=== PATIENT | female | born 2000 | race Caucasian/White ===

== ENCOUNTER → 2022-02-11 | Outpatient (CLI) | payer BC | LOC: LAB 15:02 | PROVIDERS: ATTEND Nurse Practitioner Gerontology | DX: Z32.00 Encounter for pregnancy test, result unknown (principal) | CPT/HCPCS: 36415; 84703 ==

== ENCOUNTER 2022-10-17 00:36 | Emergency (ER) | payer BC ==
[~2022-10-17] VITALS: Ht 165 cm; Wt 88.5 kg
[2022-10-17] MEDS ORDERED: FEXO180T84 PO (00:48)
[2022-10-17] MEDS ORDERED: EPIN0.3P18 (00:48)
[2022-10-17] MEDS ORDERED: FAMO-144 PO (00:48)
[2022-10-17] MEDS ORDERED: BUDE10.2 (00:48)
--- NOTE | 2022-10-17 00:56 | ED Abdominal Pain ---
General Chief Complaint: Abdominal/GI Problems Stated Complaint: ABD PAIN 5 WKS PREG Nursing Triage Note: right sided burning/stabbing abdominal pain since 1630 10/16/22 Source of Information: Patient Exam Limitations: No Limitations History of Present Illness Date Seen by Provider: Oct 17, 2022 Time Seen by Provider: 00:57 Initial Comments Patient is a 22-year-old female G2, P0 who presents to the emergency room with a chief complaint of right-sided abdominal pain that she describes as "sharp". Nothing has made it any better or any worse, she has not taken any medications for the pain. She states her examiner rating clerk told her not to take any Tylenol at this stage in her . Her last menstrual cycle was 09-08-2022. She denies any abnormal vaginal discharge or bleeding. No nausea currently. Last normal bowel movement was last night. No fevers or chills. She works as a tech at [employer], she has had mild cough. She complains of other body aches as well. Tested for COVID yesterday and it was negative. No dysuria, urgency or frequency. Has scheduled appointment at the end of October with Dr. AYALA. Tells me that she has a history of "autoimmune disease" that she is unsure what it is. She has chronic "hives". She is on multiple allergy medications Patient clinically appears non toxic, not in severe pain. resting comfortably. Timing/Duration: 1 Day Severity/Quality: Moderate, Sharp Location: RLQ Radiation: Back Activities at Onset: None Associated Symptoms: Back Pain, Nausea/Vomiting, Other (body aches) Allergies and Home Medications Allergies Coded Allergies: cetirizine (Verified Allergy, Unknown, 10/17/22) montelukast (Verified Allergy, Unknown, 10/17/22) Patient Home Medication List Home Medication List Reviewed: Yes Budesonide/Formoterol Fumarate (Symbicort 160-4.5 Mcg Inhaler) 160 Mcg-4.5 Mcg/ Actuation Hfa.aer.ad, (Reported) Entered as Reported by: JANET MOON on 10/17/2247 Last Action: New Order Epinephrine (Epinephrine) 0.3 Mg/0.3 Ml Auto.injct, (Reported) Entered as Reported by: JANET MOON on 10/17/2247 Last Action: New Order Famotidine (Acid Production Control Clerk (FAMOTIDINE)) 10 Mg Tablet, 10 MG PO BID, (Reported) Entered as Reported by: JANET MOON on 10/17/2247 Last Action: New Order Fexofenadine HCl (Sondra Allergy) 180 Mg Tablet, 180 MG PO, (Reported) Entered as Reported by: JANET MOON on 10/17/2247 Last Action: New Order Review of Systems Review of Systems Constitutional: see HPI EENTM: No Symptoms Reported, Throat Pain (mild) Respiratory: Cough Cardiovascular: No Symptoms Reported Gastrointestinal: Abdominal Pain Genitourinary: No Symptoms Reported Musculoskeletal: no symptoms reported Skin: no symptoms reported All Other Systems Reviewed Negative Unless Noted: Yes Past Bzdkial-Vtgbxo-Jgrpvv Hx Patient Social History Tobacco Use?: No Substance use?: No Alcohol Use?: No Pt feels they are or have been: No Immunizations Up To Date First/Initial COVID19 Vaccinat: x2 Past Medical History Surgery/Hospitalization HX: seasonal allergies, gerd, asthma, dental sx Last Menstrual Period: Sep 08, 2022 Physical Exam Vital Signs Vital Signs - First Documented 10/17/22 00:43 Temp 37.0 Pulse 107 Resp 16 B/P (MAP) 129/70 (89) Pulse Ox 97 O2 Delivery Room Air Capillary Refill : Less Than 3 Seconds Height/Weight/BMI Height: '" Weight: lbs. oz. kg; 32.00 BMI Method: General Appearance: WD/WN, no apparent distress HEENT: PERRL/EOMI Neck: full range of motion Respiratory: lungs clear, normal breath sounds, no respiratory distress, no accessory muscle use Cardiovascular: regular rate, rhythm Gastrointestinal: normal bowel sounds, soft, tenderness (mild tenderness RLQ; no rebound or involuntary guarding. normal bowel sounds.) Extremities: normal range of motion, non-tender, normal inspection, no pedal edema, no calf tenderness, normal capillary refill Back: no CVA tenderness Neurologic/Psychiatric: no motor/sensory deficits, alert, normal mood/affect, oriented x 3 Skin: normal color, warm/dry Progress/Results/Core Measures Results/Orders Lab Results Laboratory Tests Test 10/17/22 00:13 10/17/22 00:59 Range/Units Influenza Type A (RT-PCR) Not Detected Not Detecte Influenza Type B (RT-PCR) Not Detected Not Detecte SARS-CoV-2 RNA (RT-PCR) Detected H Not Detecte Urine Color YELLOW Urine Clarity CLEAR Urine pH 8.0 5-9 Urine Specific [place] 1.015 L 1.016-1.022 Urine Protein NEGATIVE NEGATIVE Urine Glucose (UA) NEGATIVE NEGATIVE Urine Ketones NEGATIVE NEGATIVE Urine Nitrite NEGATIVE NEGATIVE Urine Bilirubin NEGATIVE NEGATIVE Urine Urobilinogen 1.0 < = 1.0 MG/DL Urine Leukocyte Esterase NEGATIVE NEGATIVE Urine RBC (Auto) NEGATIVE NEGATIVE Urine RBC NONE /HPF Urine WBC NONE /HPF Urine Crystals NONE /LPF Urine Bacteria NEGATIVE /HPF Urine Casts NONE /LPF Urine Mucus NEGATIVE /LPF Urine Culture Indicated NO My Orders Orders - JESSA YU MD Ua Culture If Indicated (10/17/22 01:05) Urine Bedside (10/17/22 01:05) Covid 19 Inhouse Test (10/17/22 01:09) Influenza A And B By Pcr (10/17/22 01:09) Isolation Central Supply Req (10/17/22 01:09) Vital Signs/I&O 10/17/22 00:43 Temp 37.0 Pulse 107 Resp 16 B/P (MAP) 129/70 (89) Pulse Ox 97 O2 Delivery Room Air Blood Pressure Mean: 89 Progress Progress Note : Time: 01:56 Progress Note Patient seen and evaluated by me, 22-year-old female with body aches, right lower quadrant abdominal pain, generalized malaise and fatigue. Evaluation today includes physical exam, urinalysis, urine test and COVID test. Differential diagnosis includes intra-abdominal pathology such as appendicitis, ovarian torsion, ectopic , flu, COVID, urinary tract infection, Piuelonephritis. She has minimal tenderness in the right lower quadrant without rebound, involuntary guarding. Low clinical suspicion for appendicitis. Her abdominal pain is not severe, low clinical concern for ovarian torsion. She has no vaginal bleeding, clinically looks well, low clinical concern for ectopic. Her urine is clean. COVID test is positive. Suspect her abdominal pain and body aches are secondary to COVID. I have advised her that the clinical picture can change and should she develop worsening pain, vaginal bleeding she needs to come back to the emergency department for reevaluation. She is comfortable with plan of care. Tylenol recommended for body aches and pain. Hydration recommended. Return precautions given. She verbalized understanding. All questions were sought and answered. Departure Impression Primary Impression: COVID-19 Additional Impression: 5 weeks gestation of Disposition: HOME, SELF-CARE Condition: Stable Departure-Patient Inst. Decision time for Depature: 02:01 Referrals: YOSELIN AYALA,LOCAL PHYSICIAN (PCP) Primary Care Physician Patient Instructions: COVID-19 ED Add. Discharge Instructions: Plenty fluids to stay well-hydrated. Try to follow a good diet. You can take wzwi-ypm-eacddve regular strength Tylenol 650 mg every 6 hours as needed for pain. You can take Zofran, 4 mg every 8 hours as needed for nausea. You will need to quarantine until next Tuesday due to COVID. Return to the emergency room if you have any worsening pain especially with vaginal bleeding or spotting, nausea vomiting or any other new, concerning or emergent complaints Scripts Ondansetron (Ondansetron Odt) 4 Mg Tab.rapdis 4 MG SL Q8H PRN for NAUSEA/VOMITING, #10 TAB Prov: JESSA YU MD 10/17/22 Work/School Note: Work Release Form Date Seen in the Emergency Department: Oct 17, 2022 Return to Work: Oct 20, 2022 Copy Copies To 1: YOSELIN AYALA KATHRYN M MD Oct 17, 2022 00:56
[2022-10-17 01:10] LABS: BILIRUBIN,URINE NEGATIVE (NEGATIVE); CLARITY,URINE CLEAR; COLOR,URINE YELLOW; GLUCOSE, URINE (UA) NEGATIVE (NEGATIVE); KETONES,URINE NEGATIVE (NEGATIVE); LEUKOCYTE ESTERASE ,URINE NEGATIVE (NEGATIVE); NITRITE,URINE NEGATIVE (NEGATIVE); PROTEIN,URINE NEGATIVE (NEGATIVE)
[2022-10-17 01:17] LABS: BACTERIA,URINE NEGATIVE /HPF
[2022-10-17] MEDS ORDERED: ONDA4TAB11 SL (02:03)
[2022-10-17 02:05] VITALS: BP 123/79
== END 2022-10-17 02:08 | disposition home or self-care (01) ==
LOC: EDUNIT# 00:36 → ER 00:39
DX: O98.511 Other viral diseases complicating pregnancy, first trimester (principal); U07.1 COVID-19; R10.31 Right lower quadrant pain; R53.81 Other malaise; R53.83 Other fatigue; Z3A.01 Less than 8 weeks gestation of pregnancy
CPT/HCPCS: 81000; 84703; 87636; 99283

== ENCOUNTER 2022-10-20 15:49 | Emergency (ER) | payer BC ==
[~2022-10-20] VITALS: Ht 167.7 cm; Wt 88.4 kg
[~2022-10-20 15:49] MED LIST: BUDE10.2; EPIN0.3P18; FAMO-144 PO; FEXO180T84 PO; ONDA4TAB11 SL
[2022-10-20] MEDS ORDERED: PROCHLORPERAZINE 10 MG/2ML INJ (COMPAZINE) IV ONE (16:15)
[2022-10-20] MEDS ORDERED: diphenhydrAMINE 50 MG/ML INJ (BENADRYL) IVP ONE (16:15)
[2022-10-20] MEDS ORDERED: LACTATED RINGERS 1,000 ML IV SCH (16:15)
[2022-10-20 16:37] LABS: BASOPHILS % (AUTO) 0 % (0-10); EOSINOPHILS # (AUTO) 0.2 10^3/uL (0.0-0.3); EOSINOPHILS % (AUTO) 4 % (0-10); HEMATOCRIT 41 % (35-52); HEMOGLOBIN 13.5 g/dL (11.5-16.0); LYMPHOCYTES # (AUTO) 1.6 10^3/uL (1.0-4.0); LYMPHOCYTES % (AUTO) 32 % (12-44); MEAN CORPUSCULAR HEMOGLOBIN 29 pg (25-34); MEAN CORPUSCULAR HGB CONC 33 g/dL (32-36); MEAN CORPUSCULAR VOLUME 87 fL (80-99); MEAN PLATELET VOLUME 11.3 fL (9.0-12.2); MONOCYTES # (AUTO) 0.4 10^3/uL (0.0-1.0); MONOCYTES % (AUTO) 9 % (0-12); NEUTROPHILS # (AUTO) 2.6 10^3/uL (1.8-7.8); NEUTROPHILS % (AUTO) 54 % (42-75); WHITE BLOOD COUNT 4.8 10^3/uL (4.3-11.0)
[2022-10-20 16:41] LABS: BILIRUBIN,URINE NEGATIVE (NEGATIVE); CLARITY,URINE CLEAR; COLOR,URINE YELLOW; GLUCOSE, URINE (UA) NEGATIVE (NEGATIVE); KETONES,URINE TRACE (NEGATIVE); LEUKOCYTE ESTERASE ,URINE TRACE (NEGATIVE); NITRITE,URINE NEGATIVE (NEGATIVE); PROTEIN,URINE TRACE (NEGATIVE)
[2022-10-20 16:41] LABS: PLATELET COUNT 160 10^3/uL (130-400)
[2022-10-20 16:44] LABS: ALBUMIN 4.4 GM/DL (3.2-4.5); POTASSIUM 4.1 MMOL/L (3.6-5.0)
[2022-10-20 16:47] LABS: TOTAL PROTEIN 7.7 GM/DL (6.4-8.2)
[2022-10-20 16:49] LABS: BILIRUBIN,TOTAL 0.4 MG/DL (0.1-1.0)
[2022-10-20 16:50] LABS: CREATININE SERUM 0.68 MG/DL (0.60-1.30)
[2022-10-20 16:59] LABS: BACTERIA,URINE TRACE /HPF; SQUAMOUS EPITHELIAL CELL,UR >50 /HPF; WBC,URINE RARE /HPF
--- NOTE | 2022-10-20 17:00 | ED General ---
General Chief Complaint: COVID19 Suspect/Confirmed Stated Complaint: COVID + 10/17 - WEAKNESS - VOMITING Nursing Triage Note: PT AMB TO RM 9 WITH CC OF VMOITING, NAUSEA, AND HEADCHE SINCE LAST PM. PT STATES TESTED POSITIVE FOR COVID 10/17. DENIES FEVER. PT REPORTS IS PREG, LMP Aug Source of Information: Patient Exam Limitations: No Limitations History of Present Illness Date Seen by Provider: Oct 20, 2022 Time Seen by Provider: 16:00 Initial Comments Patient is a 22-year-old female who presents to the emergency department for evaluation of nausea/vomiting and headache that began last night. Patient tested positive for COVID on 10/17. She denies any fever. Patient reports she is with an LMP of September 08. She denies any abdominal pain or vaginal bleeding/discharge. She does have ODT Zofran at home but this is not helping her symptoms. She endorses a history of frequent migraines in the past. States the pain is mostly behind her left eye and is consistent with previous migraines. Allergies and Home Medications Allergies Coded Allergies: cetirizine (Verified Allergy, Unknown, 10/17/22) montelukast (Verified Allergy, Unknown, 10/17/22) Patient Home Medication List Home Medication List Reviewed: Yes Budesonide/Formoterol Fumarate (Symbicort 160-4.5 Mcg Inhaler) 160 Mcg-4.5 Mcg/Actuation Hfa.aer.ad, (Reported) Entered as Reported by: JANET MOON on 10/17/2247 Epinephrine (Epinephrine) 0.3 Mg/0.3 Ml Auto.injct, (Reported) Entered as Reported by: JANET MOON on 10/17/2247 Famotidine (Acid Sexual Assault Counsellor (FAMOTIDINE)) 10 Mg Tablet, 10 MG PO BID, (Reported) Entered as Reported by: JANET MOON on 10/17/2247 Fexofenadine HCl (Sondra Allergy) 180 Mg Tablet, 180 MG PO, (Reported) Entered as Reported by: JANET MOON on 10/17/2247 Ondansetron (Ondansetron Odt) 4 Mg Tab.rapdis, 4 MG SL Q8H PRN for NAUSEA/V OMITING Prescribed by: JESSA YU on 10/17/22202 Prochlorperazine Maleate (Prochlorperazine Maleate) 10 Mg Tablet, 10 MG PO Q8H PRN for NAUSEA/VOMITING Prescribed by: Davonte Granados on 10/20/22 1722 Review of Systems Review of Systems Constitutional: no symptoms reported EENTM: no symptoms reported Respiratory: no symptoms reported Cardiovascular: no symptoms reported Gastrointestinal: nausea, vomiting Genitourinary: no symptoms reported Musculoskeletal: no symptoms reported Skin: no symptoms reported Psychiatric/Neurological: See HPI, Headache Hematologic/Lymphatic: No Symptoms Reported Immunological/Allergic: no symptoms reported Past Otzgcfm-Lshnyu-Hucaij Hx Patient Social History Tobacco Use?: No Substance use?: No Alcohol Use?: No Pt feels they are or have been: No Immunizations Up To Date First/Initial COVID19 Vaccinat: x2 Second COVID19 Vaccination Po: x2 Third COVID19 Vaccination Date: x2 Past Medical History Surgery/Hospitalization HX: seasonal allergies, gerd, asthma, dental sx Last Menstrual Period: Sep 08, 2022 Physical Exam Vital Signs Vital Signs - First Documented 10/20/22 15:57 Temp 36.1 Pulse 97 Resp 18 B/P (MAP) 123/89 (100) Pulse Ox 99 O2 Delivery Room Air Capillary Refill : Less Than 3 Seconds Height, Weight, BMI Height: '" Weight: lbs. oz. kg; 31.00 BMI Method: General Appearance: No Apparent Distress, WD/WN HEENT: PERRL/EOMI, TMs Normal, Normal ENT Inspection, Pharynx Normal Neck: Full Range of Motion, Normal Inspection, Non Tender, Supple Respiratory: Chest Non Tender, Lungs Clear, Normal Breath Sounds, No Accessory Muscle Use, No Respiratory Distress Cardiovascular: Regular Rate, Rhythm, Normal Peripheral Pulses Gastrointestinal: Non Tender, Soft Extremity: Non Tender, No Calf Tenderness Neurologic/Psychiatric: Alert, Oriented x3, No Motor/Sensory Deficits, Normal Mood/Affect Skin: Normal Color, Warm/Dry Progress/Results/Core Measures Suspected Sepsis SIRS Temperature: Pulse: 97 Respiratory Rate: 18 Laboratory Tests 10/20/22 16:22: White Blood Count 4.8 Blood Pressure 123 /89 Mean: 100 Laboratory Tests 10/20/22 16:22: Creatinine 0.68, Platelet Count 160, Total Bilirubin 0.4 Results/Orders Lab Results Laboratory Tests Test 10/20/22 16:22 10/20/22 16:32 Range/Units White Blood Count 4.8 4.3-11.0 10^3/uL Red Blood Count 4.67 3.80-5.11 10^6/uL Hemoglobin 13.5 11.5-16.0 g/dL Hematocrit 41 35-52 % Mean Corpuscular Volume 87 80-99 fL Mean Corpuscular Hemoglobin 29 25-34 pg Mean Corpuscular Hemoglobin Concent 33 32-36 g/dL Red Cell Distribution Width 13.1 10.0-14.5 % Platelet Count 160 130-400 10^3/uL Mean Platelet Volume 11.3 9.0-12.2 fL Immature Granulocyte % (Auto) 0 % Neutrophils (%) (Auto) 54 42-75 % Lymphocytes (%) (Auto) 32 12-44 % Monocytes (%) (Auto) 9 0-12 % Eosinophils (%) (Auto) 4 0-10 % Basophils (%) (Auto) 0 0-10 % Neutrophils # (Auto) 2.6 1.8-7.8 10^3/uL Lymphocytes # (Auto) 1.6 1.0-4.0 10^3/uL Monocytes # (Auto) 0.4 0.0-1.0 10^3/uL Eosinophils # (Auto) 0.2 0.0-0.3 10^3/uL Basophils # (Auto) 0.0 0.0-0.1 10^3/uL Immature Granulocyte # (Auto) 0.0 0.0-0.1 10^3/uL Percent Immature Platelet Fraction 7.2 0.0-7.6 % Sodium Level 138 135-145 MMOL/L Potassium Level 4.1 3.6-5.0 MMOL/L Chloride Level 108 H 98-107 MMOL/L Carbon Dioxide Level 17 L 21-32 MMOL/L Anion Gap 13 5-14 MMOL/L Blood Urea Nitrogen 8 7-18 MG/DL Creatinine 0.68 0.60-1.30 MG/DL Estimat Glomerular Filtration Rate 128 BUN/Creatinine Ratio 12 Glucose Level 88 70-105 MG/DL Calcium Level 9.0 8.5-10.1 MG/DL Corrected Calcium 8.7 8.5-10.1 MG/DL Total Bilirubin 0.4 0.1-1.0 MG/DL Aspartate Amino Transf (AST/SGOT) 24 5-34 U/L Alanine Aminotransferase (ALT/SGPT) 19 0-55 U/L Alkaline Phosphatase 54 40-136 U/L Total Protein 7.7 6.4-8.2 GM/DL Albumin 4.4 3.2-4.5 GM/DL Urine Color YELLOW Urine Clarity CLEAR Urine pH 8.0 5-9 Urine Specific [place] 1.020 1.016-1.022 Urine Protein TRACE H NEGATIVE Urine Glucose (UA) NEGATIVE NEGATIVE Urine Ketones TRACE H NEGATIVE Urine Nitrite NEGATIVE NEGATIVE Urine Bilirubin NEGATIVE NEGATIVE Urine Urobilinogen 2.0 < = 1.0 MG/DL Urine Leukocyte Esterase TRACE H NEGATIVE Urine RBC (Auto) NEGATIVE NEGATIVE Urine RBC NONE /HPF Urine WBC RARE /HPF Urine Squamous Epithelial Cells >50 H /HPF Urine Crystals NONE /LPF Urine Bacteria TRACE /HPF Urine Casts NONE /LPF Urine Mucus SMALL H /LPF Urine Culture Indicated NO My Orders Orders - DAVONTE GRANADOS APRN Cbc With Automated Diff (10/20/22 16:03) Comprehensive Metabolic Panel (10/20/22 16:03) Iv/Invasive Line Insertion .IV INSERT (10/20/22 16:03) Urinalysis (10/20/22 16:03) Lactated Ringers (Lr 1000 Ml Iv Solution (10/20/22 16:15) Prochlorperazine Injection (Compazine In (10/20/22 16:15) Diphenhydramine Injection (Benadryl Inje (10/20/22 16:15) Medications Given in ED Current Medications Medications Dose Ordered Sig/Nawaf Route Start Time Stop Time Status Last Admin Dose Admin Diphenhydramine HCl 12.5 mg ONCE ONCE IVP 10/20/22 16:15 10/20/22 16:16 DC 10/20/22 16:25 12.5 MG Prochlorperazine Edisylate 10 mg ONCE ONCE IV 10/20/22 16:15 10/20/22 16:16 DC 10/20/22 16:25 10 MG Vital Signs/I&O 10/20/22 10/20/22 15:57 17:27 Temp 36.1 Pulse 97 73 Resp 18 18 B/P (MAP) 123/89 (100) 109/54 Pulse Ox 99 100 O2 Delivery Room Air Room Air Capillary Refill : Less Than 3 Seconds Blood Pressure Mean: 100 Progress Note : Progress Note Patient is nontoxic and well-hydrated on exam. Vital signs are reassuring. Abdominal exam is benign with no rigidity/distention or focal provocation of pain with palpation. Patient was ambulatory to the exam room without issue. Orders placed for CBC, CMP, IV insertion, UA, 1 L bolus of lactated Ringer's, and IV Compazine/Benadryl. CBC is unremarkable. Specifically there is no leukocytosis or anemia. CMP unremarkable for any significant metabolic derangements. Patient states she felt much better after the liter of fluid and the Compazine. Urinalysis reassuring. Will discharge home with recommendations for supportive care and close follow-up with PCP. Return precautions for symptomology discussed. Patient verbalized understanding. Departure Impression Primary Impression: Migraine Qualified Codes: G43.909 - Migraine, unspecified, not intractable, without status migrainosus Additional Impression: Nausea & vomiting Qualified Codes: R11.2 - Nausea with vomiting, unspecified Disposition: 01 HOME, SELF-CARE Condition: Stable Departure-Patient Inst. Decision time for Depature: 17:20 Referrals: NO,LOCAL PHYSICIAN (PCP/Family) Primary Care Physician Patient Instructions: Migraines (DC), Nausea and Vomiting, Adult ED Scripts Prochlorperazine Maleate (Prochlorperazine Maleate) 10 Mg Tablet 10 MG PO Q8H PRN for NAUSEA/VOMITING for 5 Days, #15 TAB 0 Refills Prov: DAVONTE GRANADOS APRN 10/20/22 DAVONTE GRANADOS APRN Oct 20, 2022 17:00
[2022-10-20] MEDS ORDERED: PROC10TA10 PO (17:22)
[2022-10-20 17:27] VITALS: BP 109/54
== END 2022-10-20 17:28 | disposition home or self-care (01) ==
LOC: EDUNIT# 15:49 → ER 15:50
DX: G43.909 Migraine, unspecified, not intractable, without status migrainosus (principal); Z86.16 Personal history of COVID-19
CPT/HCPCS: 36415; 80053; 81000; 85025; 99282

== ENCOUNTER → 2022-12-28 | Outpatient (CLI) | payer BC ==
[~2022-12-28] VITALS: Ht 166 cm; Wt 90.2 kg
[~2022-12-28] MED LIST changes: +METHOTREXATE 50 MG/2 ML PF IM ONE; +PROC10TA10 PO
[2022-12-28 13:34] VITALS: BP 119/65
== END ==
LOC: SDC 13:23
PROVIDERS: ATTEND Obstetrics & Gynecology
DX: O03.4 Incomplete spontaneous abortion without complication (principal)
CPT/HCPCS: 96372

== ENCOUNTER 2023-01-26 15:24 | Outpatient (CLI) | payer BC ==
[~2023-01-26] VITALS: Ht 167.7 cm; Wt 88.6 kg
[~2023-01-26 15:24] MED LIST changes: -FLUC150T PO; -PHEN-483 PO; -RT-ALBUINH INH; -TR1C15 TP
[2023-01-26] MEDS ORDERED: RT-ALBUINH INH (16:02)
[2023-01-26] MEDS ORDERED: TR1C15 TP (16:02)
[2023-01-26] MEDS ORDERED: FLUC150T PO (16:02)
[2023-01-26] MEDS ORDERED: PHEN-483 PO (16:02)
== END 2023-01-26 16:25 | disposition home or self-care (01) ==
LOC: PREOP 15:24
PROVIDERS: ATTEND Obstetrics & Gynecology
DX: Z01.818 Encounter for other preprocedural examination (principal)

== ENCOUNTER → 2023-01-26 | Outpatient (CLI) | payer BC ==
[~2023-01-26] MED LIST changes: +FLUC150T PO; -METHOTREXATE 50 MG/2 ML PF IM ONE; +PHEN-483 PO; +RT-ALBUINH INH; +TR1C15 TP
--- NOTE | 2023-01-26 11:09 | Diagnostic Imaging Report ---
PROCEDURE: US Non-ob pelvis comp/trans. TECHNIQUE: Multiple realtime grayscale images were obtained of the pelvis in various projections endovaginally. Transabdominal imaging was also performed. INDICATION: Recent miscarriage. COMPARISON: None available. FINDINGS: The uterus measures 7.4 x 5.7 x 5.6 cm. The endometrium is markedly thickened measuring 2.5 cm and has vascularity present within it indicative of retained products of conception. Right ovary is not visualized due to surrounding bowel gas in the adnexa. The left ovary measures 4.3 x 2.7 x 2.8 cm. Blood flow is present within the left ovary by color Doppler imaging. No suspicious adnexal mass. IMPRESSION: 1. Retained products of conception with thickened vascular material in the endometrial canal. Dictated by: Dictated on workstation # [id number]
== END ==
LOC: RAD 09:42
PROVIDERS: ATTEND Obstetrics & Gynecology
DX: O03.80 Unspecified complication following complete or unspecified spontaneous abortion (principal); Z3A.00 Weeks of gestation of pregnancy not specified
CPT/HCPCS: 76830; 76856

== ENCOUNTER 2023-01-27 07:02 | Day surgery (SDC) | payer BC ==
[~2023-01-27] VITALS: Ht 167.7 cm; Wt 88.6 kg
[2023-01-27] VITALS (12 sets, daily range): BP systolic 103–133; BP diastolic 62–91
[~2023-01-27 07:02] MED LIST changes: +FLUC150T PO; +PHEN-483 PO; +RT-ALBUINH INH; +TR1C15 TP
[2023-01-27] MEDS ORDERED: DOXYCYCLINE INJECTION 100 MG in NS (IVPB) 100 ML IV ONE (07:15)
--- NOTE | 2023-01-27 07:19 | History & Physical-Surgical ---
HPO-Surgical History of Present Illness Chief Complaint: Retained products of conception with HCG plateau Diagnosis/Surgical Indication: INCOMPLETE Procedure: SUCTION D&C Date of Surgery: January 27, 2023 Allergies and Home Medications Allergies Coded Allergies: cetirizine (Verified Allergy, Unknown, 01/26/23) montelukast (Verified Allergy, Unknown, 01/26/23) Patient Home Medication List Home Medication List Reviewed: Yes Albuterol Sulfate (Ventolin Hfa) 1 Puff Puff, 2 PUFF INH Q4H PRN for SHORTNESS OF BREATH, (Reported) Entered as Reported by: Sandee Quijano on 01/26/23 160 Budesonide/Formoterol Fumarate (Symbicort 160-4.5 Mcg Inhaler) 160 Mcg-4.5 Mcg/Actuation Hfa.aer.ad, (Reported) Entered as Reported by: JANET MOON on 10/17/2247 Epinephrine (Epinephrine) 0.3 Mg/0.3 Ml Auto.injct, (Reported) Entered as Reported by: JANET MOON on 10/17/2247 Famotidine (Acid Youth Accommodation Support Worker (FAMOTIDINE)) 10 Mg Tablet, 10 MG PO BID, (Reported) Entered as Reported by: JANET MOON on 10/17/2247 Fexofenadine HCl (Sondra Allergy) 180 Mg Tablet, 180 MG PO, (Reported) Entered as Reported by: JANET MOON on 10/17/2247 Fluconazole (Diflucan) 150 Mg Tablet, 150 MG PO ONCE, (Reported) Entered as Reported by: Sandee Quijano on 01/26/23 160 Ondansetron (Ondansetron Odt) 4 Mg Tab.rapdis, 4 MG SL Q8H PRN for NAUSEA/VOMITING Prescribed by: JESSA YU on 10/17/22 0203 Phentermine HCl (Phentermine HCl) 37.5 Mg Capsule, 37.5 MG PO DAILY, (Reported) Entered as Reported by: Sandee Quijano on 01/26/23 160 Prochlorperazine Maleate (Prochlorperazine Maleate) 10 Mg Tablet, 10 MG PO Q8H PRN for NAUSEA/VOMITING Prescribed by: Davonte Granados on 10/20/22 1722 Triamcinolone Acet (Triamcinolone Acetonide 0.1% Cream) 0.1 % Cr, 15 GM TP BID, (Reported) Entered as Reported by: Sandee Quijano on 01/26/23 1602 Past Xfqqimt-Aiucnx-Ailewz Hx Patient Social History Drug of Choice: MARIJUANA 2nd Hand Smoke Exposure: Yes Recent Hopitalizations: No Immunizations Up To Date Tetanus Booster (TDap): Less than 5yrs Date of Influenza Vaccine: Jul 09, 2022 Seasonal Allergies Seasonal Allergies: Yes Surgeries Yes (DENTAL) Respiratory Yes Cardiovascular No Neurological Yes Headaches /Migraines Reproductive System Sexually Transmitted Disease: No Genitourinary Yes UTI-Chronic Gastrointestinal Yes Irritable Bowel Musculoskeletal No Endocrine History of Endocrine Disorders: No HEENT History of HEENT Disorders: No Cancer No Psychosocial History of Psychiatric Problem: Yes Behavioral Health Disorders: Anxiety, PTSD, Depression Integumentary History of Skin or Integumenta: Yes (CHRONIC HIVES FROM PRESSURE) Blood Transfusions History of Blood Disorders: No Adverse Reaction to a Blood Tr: No Exam Vital Signs Capillary Refill : General Appearance: Alert, Oriented X3 HEENT: Atraumatic Respiratory: Clear to Auscultation Cardiovascular: Regular Rate Psych/Mental Status: Mental Status NL Assessment/Plan Admission Diagnosis Diagnosis: 22 yo female w/ retained POC Incomplete Ab Plate[place] [facility] [place]: Suction D and C Admission Status: Other (Same Day Surgery) YOSELIN AYALA DO January 27, 2023 07:19
[2023-01-27] MEDS ORDERED: ONDANSETRON 4 MG/2 ML (SDV) Z0FRAN IVP PRN ×2 (07:30→09:15)
[2023-01-27] MEDS ORDERED: HYDROcodone/APAP 5 MG/325 MG (LORTAB) TAB PO PRN (07:30)
[2023-01-27] MEDS ORDERED: D5 LR IV SOLUTION 1,000 ML IV SCH (07:30)
[2023-01-27] MEDS ORDERED: KETOROLAC 30 MG/ML VIAL IVP ONE (07:30)
[2023-01-27 08:28] LABS: BASOPHILS % (AUTO) 1 % (0-10); EOSINOPHILS # (AUTO) 0.4 10^3/uL (0.0-0.3); EOSINOPHILS % (AUTO) 6 % (0-10); HEMATOCRIT 33 % (35-52); LYMPHOCYTES # (AUTO) 2.4 10^3/uL (1.0-4.0); LYMPHOCYTES % (AUTO) 36 % (12-44); MEAN CORPUSCULAR HEMOGLOBIN 25 pg (25-34); MEAN CORPUSCULAR HGB CONC 31 g/dL (32-36); MEAN CORPUSCULAR VOLUME 82 fL (80-99); MEAN PLATELET VOLUME 10.6 fL (9.0-12.2); MONOCYTES # (AUTO) 0.6 10^3/uL (0.0-1.0); MONOCYTES % (AUTO) 8 % (0-12); NEUTROPHILS # (AUTO) 3.2 10^3/uL (1.8-7.8); NEUTROPHILS % (AUTO) 49 % (42-75); PLATELET COUNT 295 10^3/uL (130-400); WHITE BLOOD COUNT 6.6 10^3/uL (4.3-11.0)
[2023-01-27] MEDS: DOXYCYCLINE 100 MG INJ (VIBRAMYCIN) ONE ×2 (08:29→08:36)
[2023-01-27 08:39] LABS: ALBUMIN 4.2 GM/DL (3.2-4.5)
[2023-01-27 08:40] LABS: CALCIUM 8.6 MG/DL (8.5-10.1)
[2023-01-27 08:41] LABS: TOTAL PROTEIN 7.1 GM/DL (6.4-8.2)
[2023-01-27 08:43] LABS: BILIRUBIN,TOTAL 0.3 MG/DL (0.1-1.0)
[2023-01-27 08:45] LABS: CREATININE SERUM 0.67 MG/DL (0.60-1.30)
[2023-01-27] MEDS ORDERED: LACTATED RINGERS 1,000 ML IV PRN (08:45)
[2023-01-27] MEDS ORDERED: morphine INJ 10 MG/ML 1ML (SYR OR VIAL) IVP ONE (09:15)
[2023-01-27] MEDS ORDERED: MEPERIDINE (DEMEROL) INJ 50 MG/ML IVP ONE (09:15)
--- NOTE | 2023-01-27 09:15 | Anesthesia-General Post-Op ---
General Patient Condition Mental Status/LOC: Same as Preop Cardiovascular: Satisfactory Nausea/Vomiting: Absent Respiratory: Satisfactory Pain: Controlled Complications: Absent Post Op Complications Complications None Follow Up Care/Instructions Patient Instructions None needed. Anesthesia/Patient Condition Patient Condition Patient is doing well, no complaints, stable vital signs, no apparent adverse anesthesia problems. No complications reported per nursing. KEN ALFARO CRNA January 27, 2023 09:14
--- NOTE | 2023-01-27 14:00 | OPERATIVE REPORT ---
DATE OF SERVICE: 01/27/2023 PREOPERATIVE DIAGNOSIS: A 22-year-old female with incomplete . POSTOPERATIVE DIAGNOSIS: A 22-year-old female with incomplete . PROCEDURE: Suction D and C. SURGEON: Yoselin Ayala DO ANESTHESIA: LMA general. ESTIMATED BLOOD LOSS: 300 mL URINE OUTPUT: 100 mL clear drained at the start of the procedure. FLUIDS: 800 mL lactated Ringer solution. FINDINGS: Grossly normal-appearing external female genitalia. Small amount of products of conception consistent with retained products. SPECIMEN SENT: Products of conception. INDICATIONS FOR PROCEDURE: This 22-year-old female was a patient who had sought care in my office. She was diagnosed with a miscarriage and began to miscarry at home; however, she had a plateau in her beta hCG level at 20 and did not drop any further. Ultrasound revealed that there were suggestive of retained products of conception. I then discussed with the patient proceeding with suction D and C to solve this problem. Risks of the procedure were discussed with the patient in detail in the preoperative area and after all of her questions were answered, she was agreeable to proceed. Consent was obtained. The patient was taken to the operating room. OPERATIVE DESCRIPTION IN DETAIL: Once in the operating room, anesthesia was administered and found to be adequate. She was placed in dorsal lithotomy position, prepped and draped in normal sterile fashion. Timeout was performed. The bladder was drained using straight catheterization. Weighted speculum was inserted to the patient's vagina. Right angle retractor was used to visualized the cervix which was grasped at 12 o'clock position using a long Allis clamp. I then gently sound the uterine cavity, depth was found to be 8 cm. I then gently dilated cervix using Hanks dilators to maximum dilatation of 1 cm, at which point I advanced a #7 rigid David suction curette into the uterus and applied Linden suction to a maximum suction pressure of 80 mmHg, at which point I methodically rotated and removed all remaining products of conception. This was done on several passes, rotating the suction David curette and performed a gentle sharp curettage. Once this was finally felt to have removed all of the products of conception, bleeding significantly lightened at that point. I removed all the instruments from the patient's vagina. The patient tolerated the procedure well and sent to recovery area in stable condition. Lap and sponge counts were correct at the end of the procedure. Instrument counts correct as well. Job ID: [id number] DocumentID: [id number] Dictated Date: 01/27/2023 09:10:01 Group Reservations Coordinator Date: 01/27/2023 13:58:00 Dictated By: YOSELIN AYALA DO
== END 2023-01-27 11:20 ==
LOC: SDC 07:02
PROVIDERS: ATTEND Obstetrics & Gynecology
DX: O03.4 Incomplete spontaneous abortion without complication (principal)
CPT/HCPCS: 36415; 80053; 85025; 86850; 86900; 86901; 87081

== ENCOUNTER 2023-03-13 21:45 | Emergency (ER) | payer BC ==
[~2023-03-13] VITALS: Ht 165 cm; Wt 88.5 kg
[2023-03-13] MEDS ORDERED: FLUC150T41 (21:53)
[2023-03-13 22:03] LABS: BILIRUBIN,URINE NEGATIVE (NEGATIVE); CLARITY,URINE CLEAR; COLOR,URINE YELLOW; GLUCOSE, URINE (UA) NEGATIVE (NEGATIVE); KETONES,URINE NEGATIVE (NEGATIVE); LEUKOCYTE ESTERASE ,URINE NEGATIVE (NEGATIVE); NITRITE,URINE NEGATIVE (NEGATIVE); PROTEIN,URINE NEGATIVE (NEGATIVE)
[2023-03-13] MEDS ORDERED: ONDANSETRON 4 MG (ZOFRAN) ORAL DISSOLVE TAB PO STA (22:04)
[2023-03-13 22:12] LABS: AMORPHOUS SEDIMENT,UR FEW AMOR URATES /LPF; BACTERIA,URINE NEGATIVE /HPF
[2023-03-13 22:15] LABS: AMPHETAMINE SCREEN, URINE NEGATIVE (NEGATIVE); BARBITURATE SCREEN URINE NEGATIVE (NEGATIVE); BENZODIAZEPINES SCREEN URINE NEGATIVE (NEGATIVE); CANNABINOID SCREEN, URINE POSITIVE (NEGATIVE); COCAINE SCREEN URINE NEGATIVE (NEGATIVE); METHADONE STAT NEGATIVE (NEGATIVE); OPIATE SCREEN URINE NEGATIVE (NEGATIVE); OXYCODONE STAT NEGATIVE (NEGATIVE); PROPOXYPHENE STAT NEGATIVE (NEGATIVE); TRICYCLIC ANTIDEPRESSANTS SCRE NEGATIVE (NEGATIVE)
--- NOTE | 2023-03-13 22:20 | ED GI ---
General Chief Complaint: Abdominal/GI Problems Stated Complaint: VOMITING Nursing Triage Note: C/O CONSTANT SHARP RIGHT LOWER BACK PAIN RADIATING TO ABDOMEN. VOMITTING SINCE 1330 Source of Information: Patient History of Present Illness Date Seen by Provider: Mar 13, 2023 Time Seen by Provider: 21:55 Initial Comments PT ARRIVES VIA POV PT STATES SHE WORKED 16 HOURS YESTERDAY AT [employer] [facility] AND GOT OFF WORK AT 0600 BEGAN GETTING A HEADACHE AND NAUSEA AT 0600 WHEN SHE GOT HOME. STATES SHE HAS ALSO BEEN HAVING PAIN SHOOTING DOWN BOTH OF THE OUTSIDES OF HER LEGS SHE ALSO C/O LOW BACK PAIN AND LOW ABDOMINAL PAIN NO URINARY SYMPTOMS, AND VOIDING A NORMAL AMOUNT--LAST VOID WAS JUST PRIOR TO ARRIVAL NO FEVER--TEMP 97.9 NO PARESTHESIAS OR MOTOR DEFICITS SHE WOKE UP AT 1330 TO GO TO WORK AT 1500 SHE WORKED FOR 1 1/2 HOURS AND HAD TO LEAVE WORK STATES SHE HAS HAD NAUSEA AND VOMITING SINCE SHE WOKE UP SHE TOOK PROMETHAZINE AT 1400 SHE HAD 2 NEGATIVE COVID TESTS TODAY AT WORK. SHE HAS NOT TAKEN ANYTHING FOR PAIN NO KNOWN SICK CONTACTS OR SUSPICIOUS FOODS SHE LAST ATE AT 0400--SALAD WITH HAM, GRANGER BITS, RANCH DRESSING. SHE STATES SHE "KEEPS DRINKING ICE WATER AND I CAN'T KEEP IT DOWN" LMP 02/28/23. NO CONTROL PT HAD A MISCARRIAGE WITH D&C 01/27/23. SHE WAS ON DOXYCYCLINE AFTER THAT SHE IS NOT HAVING ANY VAGINAL OR FACETER COMPLAINTS AT THIS TIME SHE STATES SHE WENT TO DR. AYALA'S OFFICE ON TUESDAY FOR YEAST INFECTION AND WAS PRESCRIBED DIFLUCAN. SHE TOOK 1 ON TUESDAY AND IS TO TAKE A SECOND DOSE AFTER 3 DAYS. NO CHRONIC MEDICAL PROBLEMS OTHER THAN ENVIRONMENTAL ALLERGIES. SHE TAKES CANDE ON A REGULAR BASIS PT VAPES MARIJUANA "DAB PEN" --STATES SHE LAST USED MARIJUANA LAST WEEK. SHE DENIES ALCOHOL USE Allergies and Home Medications Allergies Coded Allergies: cetirizine (Verified Allergy, Unknown, 01/27/23) montelukast (Verified Allergy, Unknown, 01/27/23) Patient Home Medication List Home Medication List Reviewed: Yes Albuterol Sulfate (Ventolin Hfa) 1 Puff Puff, 2 PUFF INH Q4H PRN for SHORTNESS OF BREATH, (Reported) Entered as Reported by: Sandee Quijano on 01/26/23 1602 Budesonide/Formoterol Fumarate (Symbicort 160-4.5 Mcg Inhaler) 160 Mcg-4.5 Mcg/Actuation Hfa.aer.ad, (Reported) Entered as Reported by: JANET MOON on 10/17/2247 Epinephrine (Epinephrine) 0.3 Mg/0.3 Ml Auto.injct, (Reported) Entered as Reported by: JANET MOON on 10/17/2247 Famotidine (Acid Meeting Coordinator (FAMOTIDINE)) 10 Mg Tablet, 10 MG PO BID, (Reported) Entered as Reported by: JANET MOON on 10/17/2247 Fexofenadine HCl (Cande Allergy) 180 Mg Tablet, 180 MG PO, (Reported) Entered as Reported by: JANET MOON on 10/17/2247 Fluconazole (Diflucan) 150 Mg Tablet, 150 MG PO ONCE, (Reported) Entered as Reported by: Sandee Quijano on 01/26/231601 Fluconazole (Fluconazole) 150 Mg Tablet, (Reported) Entered as Reported by: JANET MOON on 03/13/232152 Last Action: New Order Ondansetron (Ondansetron Odt) 4 Mg Tab.rapdis, 4 MG SL Q8H PRN for NAUSEA/VOMITING Prescribed by: JESSA YU on 10/17/22202 Ondansetron (Ondansetron Odt) 8 Mg Tab.rapdis, 8 MG PO Q4H PRN for NAUSEA/VO MITING Prescribed by: CELSO OROZCO on 03/14/231 Pantoprazole Sodium (Protonix) 40 Mg Tablet.dr, 40 MG PO DAILY Prescribed by: CELSO OROZCO on 03/14/231 Phentermine HCl (Phentermine HCl) 37.5 Mg Capsule, 37.5 MG PO DAILY, (Reported) Entered as Reported by: Sandee Quijano on 01/26/231601 Prochlorperazine Maleate (Prochlorperazine Maleate) 10 Mg Tablet, 10 MG PO Q8H PRN for NAUSEA/VOMITING Prescribed by: Davonte Granados on 10/20/22 172 Triamcinolone Acet (Triamcinolone Acetonide 0.1% Cream) 0.1 % Cr, 15 GM TP BID, (Reported) Entered as Reported by: Sandee Quijano on 01/26/23 1602 Review of Systems Review of Systems Constitutional: no symptoms reported EENTM: No Symptoms Reported Respiratory: No Symptoms Reported Cardiovascular: No Symptoms Reported Gastrointestinal: See HPI Genitourinary: No Symptoms Reported Musculoskeletal: see HPI Skin: no symptoms reported Psychiatric/Neurological: See HPI Endocrine: No Symptoms Reported Hematologic/Lymphatic: No Symptoms Reported Past Vygnvfb-Bhjiiy-Zoagnt Hx Patient Social History Tobacco Use?: No Use of E-Cig and/or Vaping dev: Yes E-Cig or Vaping type used: Marijuana, Synthetic Cannabinoids Additional E-Cig or Vaping: "DAB PEN" Use of E-Cig and/or Vaping Faustino: Current Someday User Substance use?: Yes Substance type: Marijuana Substance frequency: Couple times a week Alcohol Use?: No Pt feels they are or have been: No Immunizations Up To Date Tetanus Booster (TDap): Less than 5yrs First/Initial COVID19 Vaccinat: 01/07 Second COVID19 Vaccination Po: 02/06 Third COVID19 Vaccination Date: x2 Seasonal Allergies Seasonal Allergies: Yes Past Medical History Surgery/Hospitalization HX: seasonal allergies, gerd, asthma, dental sx, d&c Surgeries: Yes (DENTAL; D&C 01/27/23 FOR MISCARRIAGE) Respiratory: Yes Asthma, Pneumonia Cardiac: No Neurological: Yes Headaches /Migraines : No Last Menstrual Period: Feb 28, 2023 Hx : 1 Hx Para: 0 Hx Total # of Abortions (Sp): 1 (MISCARRIAGE WITH D&C 01/27/23) Sexually Transmitted Disease: No Genitourinary: Yes UTI-Chronic Gastrointestinal: Yes Irritable Bowel Musculoskeletal: No Endocrine: No HEENT: No Cancer: No Psychosocial: Yes Anxiety, PTSD, Depression 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 oz. kg; 32.00 BMI Method: General Appearance: WD/WN, no apparent distress, other (DOES NOT APPEAR ILL OR TO BE IN ANY DISTRESS. ) HEENT: normal ENT inspection Neck: normal inspection Respiratory: normal breath sounds, no respiratory distress, no accessory muscle use Cardiovascular: regular rate, rhythm, no murmur Gastrointestinal: normal bowel sounds, soft, tenderness (DIFFUSE TENDERNESS--EXAGGERATED PAIN RESPONSE) Extremities: normal inspection, normal capillary refill Back: No decreased range of motion; other (DIFFUSE BACK TENDERNESS--EXAGGERATED PAIN RESPONSE) Neurologic/Psychiatric: obstetrics gyn II-XII nml as tested, no motor/sensory deficits, alert, normal mood/affect, oriented x 3 Skin: normal color, warm/dry, tattoos/piercings Progress/Results/Core Measures Results/Orders Lab Results Laboratory Tests Test 03/13/23 21:51 Range/Units Urine Color YELLOW Urine Clarity CLEAR Urine pH 6.0 5-9 Urine Specific Farner <=1.005 1.016-1.022 Urine Protein NEGATIVE NEGATIVE Urine Glucose (UA) NEGATIVE NEGATIVE Urine Ketones NEGATIVE NEGATIVE Urine Nitrite NEGATIVE NEGATIVE Urine Bilirubin NEGATIVE NEGATIVE Urine Urobilinogen 0.2 < = 1.0 MG/DL Urine Leukocyte Esterase NEGATIVE NEGATIVE Urine RBC (Auto) NEGATIVE NEGATIVE Urine RBC NONE /HPF Urine WBC NONE /HPF Urine Squamous Epithelial Cells 5-10 /HPF Urine Crystals PRESENT H /LPF Urine Amorphous Sediment FEW BART URATES H /LPF Urine Bacteria NEGATIVE /HPF Urine Casts NONE /LPF Urine Mucus NEGATIVE /LPF Urine Culture Indicated NO Urine Opiates Screen NEGATIVE NEGATIVE Urine Oxycodone Screen NEGATIVE NEGATIVE Urine Methadone Screen NEGATIVE NEGATIVE Urine Propoxyphene Screen NEGATIVE NEGATIVE Urine Barbiturates Screen NEGATIVE NEGATIVE Ur Tricyclic Antidepressants Screen NEGATIVE NEGATIVE Urine Phencyclidine Screen NEGATIVE NEGATIVE Urine Amphetamines Screen NEGATIVE NEGATIVE Urine Methamphetamines Screen NEGATIVE NEGATIVE Urine Benzodiazepines Screen NEGATIVE NEGATIVE Urine Cocaine Screen NEGATIVE NEGATIVE Urine Cannabinoids Screen POSITIVE H NEGATIVE My Orders Orders - CELSO OROZCO DO Urine Bedside (03/13/23 21:55) Drug Screen Stat (Urine) (03/13/23 21:55) Ua Culture If Indicated (03/13/23 21:55) Ondansetron Oral Dissolve Tab (Zofran (03/13/23 22:04) Ct Abd/Pelvis Wo(Kidney Stone) (03/13/23 22:50) Vital Signs/I&O 03/13/23 03/14/23 21:49 00:06 Temp 36.9 36.7 Pulse 82 81 Resp 16 16 B/P (MAP) 131/82 (98) 131/77 Pulse Ox 98 99 O2 Delivery Room Air Room Air Blood Pressure Mean: 98 Progress Progress Note : Progress Note UA, UDS, UPT ORDERED UA IS CLEAR--NO INFECTION OR BLOOD, SG < 1.005 UDS + FOR THC GIVEN ZOFRAN--NAUSEA IS GONE GIVEN ICE CHIPS NO VOMITING DURING ER STAY PT IS ABLE TO KEEP ICE CHIPS DOWN NOW HER COMPLAINT IS BACK PAIN AND ABDOMINAL PAIN. CT ORDERED. CT IS UNREMARKABLE ON RETURN FROM CT, SHE NO LONGER COMPLAINS OF ABDOMINAL PAIN OR BACK PAIN SHE DID NOT COMPLAIN OF HEADACHE AT ANY TIME DURING ER STAY VITALS STABLE. NO DETERIORATION IN PT'S CONDITION DURING ER STAY DISCUSSED TEST RESULTS, ANTICIPATED COURSE, SYMPTOMATIC TREATMENT, DIET, NEED TO STOP MARIJUANA USE, MEDICATIONS, NEED FOR FOLLOW UP AND RETURN PRECAUTIONS. Diagnostic Imaging Comments CT ABDOMEN/PELVIS--PER [facility] VIA FAX AT [phone] -2.1 CM RIGHT OVARIAN CYST -NON-VISUALIZATION OF APPENDIX, NO SECONDARY CT SIGNS OF APPENDICITIS -OTHERWISE UNREMARKABLE Reviewed: Reviewed by Me Departure Impression Primary Impression: Nausea & vomiting Additional Impressions: Migraine Marijuana use Abdominal pain Back pain Disposition: HOME, SELF-CARE Condition: Improved Departure-Patient Inst. Decision time for Depature: 23:59 Referrals: NO,LOCAL PHYSICIAN (PCP/Family) Primary Care Physician Patient Instructions: Abdominal Pain, Adult ED, Cannabis hyperemesis syndrome, Low Back Pain ED, Nausea and Vomiting, Adult ED Add. Discharge Instructions: HOME, REST LOTS OF CLEAR LIQUIDS, SIPS AT A TIME--WATER, BROTH,JELLO, GATORADE TOMORROW IF YOU ARE BETTER, ADD BRATS DIET TO CLEAR LIQUIDS--BANANAS, RICE, APPLESAUCE, TOAST, SALTINES TYLENOL AND MOTRIN NEEDED FOR PAIN NO MARIJUANA OR ALCOHOL FOLLOW UP WITH YOUR DR IN 1-2 DAYS IF NO BETTER All discharge instructions reviewed with patient and/or family. Voiced understanding. Scripts Pantoprazole Sodium (Protonix) 40 Mg Tablet.dr 40 MG PO DAILY, #15 TAB Prov: CELSO OROZCO DO 03/14/23 Ondansetron (Ondansetron Odt) 8 Mg Tab.rapdis 8 MG PO Q4H PRN for NAUSEA/VOMITING, #10 TAB Prov: CELSO OROZCO DO 03/14/23 CELSO OROZCO DO Mar 13, 2023 22:20
[2023-03-14] MEDS ORDERED: PANT40TA2 PO (00:02)
[2023-03-14] MEDS ORDERED: ONDA8TAB13 PO (00:02)
[2023-03-14 00:06] VITALS: BP 131/77
--- NOTE | 2023-03-14 05:43 | Diagnostic Imaging Report ---
PROCEDURE: CT urinary tract, rule out kidney stone. TECHNIQUE: Multiple contiguous axial images were obtained through the abdomen and pelvis without the use of intravenous contrast. Auto Exposure Controls were utilized during the CT exam to meet ALARA standards for radiation dose reduction. INDICATION: Flank pain, kidney stone COMPARISON: None available. FINDINGS: The visualized lung bases are clear. The liver and spleen are unremarkable. The adrenal glands are unremarkable. The pancreas is unremarkable. The bilateral kidneys and ureters are unremarkable without evidence of stones or hydroureteronephrosis. No aneurysmal dilatation of the abdominal aorta. The appendix is unremarkable. The urinary bladder is unremarkable. 2.1 cm right adnexal cyst. The uterus and left adnexa are otherwise unremarkable. No bowel obstruction or pneumatosis. No significant adenopathy, free air, or free fluid within the abdomen or pelvis. Mild reverse S-shaped curvature of the thoracolumbar spine without acute osseous abnormality. IMPRESSION: A 2.1 cm right ovarian cyst. Mild reverse S-shaped curvature of the thoracolumbar spine. Additional findings as above. Agree with preliminary interpretation. Dictated by: Dictated on workstation # [id number]
== END 2023-03-14 00:08 | disposition home or self-care (01) ==
LOC: EDUNIT# 21:45 → ER 21:47
DX: G43.909 Migraine, unspecified, not intractable, without status migrainosus (principal); F12.90 Cannabis use, unspecified, uncomplicated; R10.84 Generalized abdominal pain; M54.50 Low back pain, unspecified; F17.290 Nicotine dependence, other tobacco product, uncomplicated; Z87.19 Personal history of other diseases of the digestive system
CPT/HCPCS: 74176; 80306; 81000; 84703

== ENCOUNTER 2023-04-15 22:23 | Emergency (ER) | payer BC ==
[~2023-04-15] VITALS: Ht 167.7 cm; Wt 88.5 kg
[~2023-04-15 22:23] MED LIST changes: +FLUC150T41; +ONDA8TAB13 PO; +PANT40TA2 PO
[2023-04-15 22:38] VITALS: BP 145/79
--- NOTE | 2023-04-16 00:02 | ED General ---
General Chief Complaint: OB < 20 WEEKS Stated Complaint: MOUTH, EAR AND THROAT SWELLING Nursing Triage Note: PT AMB TO ED BY POV WITH C/O "ALLERGIC REACTION TO ." PT REPORTS SHE HAS AN AUTOIMMUNE DISEASE AND IS ALLERGIC TO HER HORMONES. PT REPORTS SHE IS APPROX 7 WKS AND HAS BEEN HAVING HIVES, ITCHY, BURNING SENSATION UNDER SKIN SINCE SHE'S BEEN , WORSE OVER THE LAST THREE DAYS. PT IS UNABLE TO TAKE HER NORMAL MEDS TO HELP CONTROL SX BECAUSE THEY ARE NOT SAFE. LMP FEBRUARY 28. . Allergies and Home Medications Allergies Coded Allergies: cetirizine (Verified Allergy, Unknown, 01/27/23) montelukast (Verified Allergy, Unknown, 01/27/23) Patient Home Medication List Albuterol Sulfate (Ventolin Hfa) 1 Puff Puff, 2 PUFF INH Q4H PRN for SHORTNESS OF BREATH, (Reported) Entered as Reported by: Snadee Quijano on 01/26/23 160 Budesonide/Formoterol Fumarate (Symbicort 160-4.5 Mcg Inhaler) 160 Mcg-4.5 Mcg/Actuation Hfa.aer.ad, (Reported) Entered as Reported by: JANET MOON on 10/17/2247 Epinephrine (Epinephrine) 0.3 Mg/0.3 Ml Auto.injct, (Reported) Entered as Reported by: JANET MOON on 10/17/2247 Famotidine (Acid Food And Beverage Associate (FAMOTIDINE)) 10 Mg Tablet, 10 MG PO BID, (Reported) Entered as Reported by: JANET MOON on 10/17/2247 Fexofenadine HCl (Sondra Allergy) 180 Mg Tablet, 180 MG PO, (Reported) Entered as Reported by: JANET MOON on 10/17/2247 Fluconazole (Diflucan) 150 Mg Tablet, 150 MG PO ONCE, (Reported) Entered as Reported by: Sandee Quijano on 01/26/231601 Fluconazole (Fluconazole) 150 Mg Tablet, (Reported) Entered as Reported by: JANET MOON on 03/13/232152 Ondansetron (Ondansetron Odt) 4 Mg Tab.rapdis, 4 MG SL Q8H PRN for NAUSEA/VOMITING Prescribed by: JESSA YU on 10/17/22 0203 Ondansetron (Ondansetron Odt) 8 Mg Tab.rapdis, 8 MG PO Q4H PRN for NAUSEA/VOMITING Prescribed by: CELSO OROZCO on 03/14/23 0002 Pantoprazole Sodium (Protonix) 40 Mg Tablet.dr, 40 MG PO DAILY Prescribed by: CELSO OROZCO on 03/14/23 0002 Phentermine HCl (Phentermine HCl) 37.5 Mg Capsule, 37.5 MG PO DAILY, (Reported) Entered as Reported by: Sandee Quijano on 01/26/23 1602 Prochlorperazine Maleate (Prochlorperazine Maleate) 10 Mg Tablet, 10 MG PO Q8H PRN for NAUSEA/VOMITING Prescribed by: Davonte Granados on 10/20/22 172 Triamcinolone Acet (Triamcinolone Acetonide 0.1% Cream) 0.1 % Cr, 15 GM TP BID, (Reported) Entered as Reported by: aSndee Quijano on 01/26/23 160 Past Ofdbahk-Vglsev-Dfipud Hx Patient Social History Tobacco Use?: No Use of E-Cig and/or Vaping dev: No Substance use?: No Alcohol Use?: No Pt feels they are or have been: No Immunizations Up To Date Tetanus Booster (TDap): Less than 5yrs Influenza Vaccine Up-to-Date: Yes; Up-to-Date First/Initial COVID19 Vaccinat: 01/07 Second COVID19 Vaccination Po: 02/06 Third COVID19 Vaccination Date: x2 Seasonal Allergies Seasonal Allergies: Yes Past Medical History Surgery/Hospitalization HX: seasonal allergies, gerd, asthma, dental sx, d&c Surgeries: Yes (DENTAL; D&C 01/27/23 FOR MISCARRIAGE) Respiratory: Yes Asthma, Pneumonia Cardiac: No Neurological: Yes Headaches /Migraines Last Menstrual Period: Feb 28, 2023 Sexually Transmitted Disease: No Genitourinary: Yes UTI-Chronic Gastrointestinal: Yes Irritable Bowel Musculoskeletal: No Endocrine: No HEENT: No Cancer: No Psychosocial: Yes Anxiety, PTSD, Depression Integumentary: Yes (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 oz. kg; 31.00 BMI Method: Progress/Results/Core Measures Suspected Sepsis SIRS Temperature: Pulse: 88 Respiratory Rate: 18 Blood Pressure 145 /79 Mean: 101 Results/Orders Vital Signs/I&O 04/15/23 22:38 Temp 37.3 Pulse 88 Resp 18 B/P (MAP) 145/79 (101) Pulse Ox 98 O2 Delivery Room Air Capillary Refill : Less Than 3 Seconds Blood Pressure Mean: 101 Departure Impression Primary Impression: Allergies Disposition: HOME, SELF-CARE Condition: Stable Departure-Patient Inst. Decision time for Depature: 23:45 Referrals: YOSELIN AYALA,LOCAL PHYSICIAN (PCP) Primary Care Physician Patient Instructions: Controlling Dust and Allergens in Your Home Add. Discharge Instructions: YOU MAY TAKE YOUR PREDNISONE AND ALBUTEROL INHALER PRESCRIBED FOLLOW UP WITH DR. AYALA AND YOUR SURGICAL CLINICAL REVIEWER FOR FURTHER CARE All discharge instructions reviewed with patient and/or family. Voiced understanding. CELSO OROZCO DO Apr 16, 2023 00:02
[2023-04-17] MEDS ORDERED: PROM12.511 PO (18:07)
[2023-04-17] MEDS ORDERED: DOXY1TAB3 PO (18:07)
[2023-04-17] MEDS ORDERED: FAMO-119 PO (18:07)
== END 2023-04-16 00:16 | disposition home or self-care (01) ==
LOC: EDUNIT# 22:23 → ER 22:26
DX: O99.891 Other specified diseases and conditions complicating pregnancy (principal); L50.8 Other urticaria; T38.805A Adverse effect of unspecified hormones and synthetic substitutes, initial encounter; Z3A.01 Less than 8 weeks gestation of pregnancy
CPT/HCPCS: 99281

== ENCOUNTER 2023-04-17 14:13 | Emergency (ER) | payer BC ==
[~2023-04-17] VITALS: Ht 167.7 cm; Wt 88.5 kg
[2023-04-17] MEDS ORDERED: PROMETHAZINE INJ 25 MG/ML (PHENERGAN) AMP IVP ONE (14:45)
[2023-04-17] MEDS ORDERED: LACTATED RINGERS 1,000 ML IV ONE (14:45)
[2023-04-17 14:51] LABS: BASOPHILS % (AUTO) 0 % (0-10); EOSINOPHILS # (AUTO) 0.2 10^3/uL (0.0-0.3); EOSINOPHILS % (AUTO) 2 % (0-10); HEMATOCRIT 35 % (35-52); HEMOGLOBIN 10.6 g/dL (11.5-16.0); LYMPHOCYTES # (AUTO) 1.7 10^3/uL (1.0-4.0); LYMPHOCYTES % (AUTO) 23 % (12-44); MEAN CORPUSCULAR HEMOGLOBIN 23 pg (25-34); MEAN CORPUSCULAR HGB CONC 30 g/dL (32-36); MEAN CORPUSCULAR VOLUME 75 fL (80-99); MEAN PLATELET VOLUME 9.9 fL (9.0-12.2); MONOCYTES # (AUTO) 0.4 10^3/uL (0.0-1.0); MONOCYTES % (AUTO) 6 % (0-12); NEUTROPHILS # (AUTO) 5.1 10^3/uL (1.8-7.8); NEUTROPHILS % (AUTO) 68 % (42-75); PLATELET COUNT 292 10^3/uL (130-400); WHITE BLOOD COUNT 7.4 10^3/uL (4.3-11.0)
[2023-04-17 14:58] LABS: POTASSIUM 3.6 MMOL/L (3.6-5.0)
[2023-04-17 14:59] LABS: CALCIUM 9.3 MG/DL (8.5-10.1)
[2023-04-17 15:03] LABS: CREATININE SERUM 0.64 MG/DL (0.60-1.30)
[2023-04-17] MEDS ORDERED: FAMOTIDINE 20MG/2ML IV (PEPCID) IVP ONE (16:00)
[2023-04-17 16:03] LABS: BILIRUBIN,URINE NEGATIVE (NEGATIVE); CLARITY,URINE CLEAR; COLOR,URINE YELLOW; GLUCOSE, URINE (UA) NEGATIVE (NEGATIVE); KETONES,URINE NEGATIVE (NEGATIVE); LEUKOCYTE ESTERASE ,URINE NEGATIVE (NEGATIVE); NITRITE,URINE NEGATIVE (NEGATIVE); PROTEIN,URINE NEGATIVE (NEGATIVE)
[2023-04-17 16:14] LABS: BACTERIA,URINE TRACE /HPF; WBC,URINE RARE /HPF
[2023-04-17] MEDS ORDERED: SCOPOLAMINE 1.5 MG (TRANSDERM-SCOP) PATCH TD ONE (16:30)
--- NOTE | 2023-04-17 16:31 | ED GU-Female ---
General Chief Complaint: OB < 20 WEEKS Stated Complaint: CHEST TIGHTNESS/ VOMITING/ 7 WEEKS Nursing Triage Note: PT AMBULATE TO ROOM 10 WITH DIFFICULTY WITH C/O NAUSEA, CHEST PAIN STARTING TUESDAY. PT REPORTS SHE SEEN HER PULMONOGIST IN MARCH AND TOLD HER LUNGS "ARE 98 % INFLAMED". PT REPORTS TAKING ZOFRAN AT [facility] TODAY. Source: patient Exam Limitations: no limitations History of Present Illness Date Seen by Provider: Apr 17, 2023 Time Seen by Provider: 14:21 Allergies and Home Medications Allergies Coded Allergies: cetirizine (Verified Allergy, Unknown, 01/27/23) montelukast (Verified Allergy, Unknown, 01/27/23) Patient Home Medication List Albuterol Sulfate (Ventolin Hfa) 1 Puff Puff, 2 PUFF INH Q4H PRN for SHORTNESS OF BREATH, (Reported) Entered as Reported by: Sandee Quijano on 01/26/23 160 Budesonide/Formoterol Fumarate (Symbicort 160-4.5 Mcg Inhaler) 160 Mcg-4.5 Mcg/Actuation Hfa.aer.ad, (Reported) Entered as Reported by: JANET MOON on 10/17/2247 Epinephrine (Epinephrine) 0.3 Mg/0.3 Ml Auto.injct, (Reported) Entered as Reported by: JANET MOON on 10/17/2247 Famotidine (Acid Therapeutic Riding Instructor (FAMOTIDINE)) 10 Mg Tablet, 10 MG PO BID, (Reported) Entered as Reported by: JANET MOON on 10/17/2247 Fexofenadine HCl (Sondra Allergy) 180 Mg Tablet, 180 MG PO, (Reported) Entered as Reported by: JANET MOON on 10/17/2247 Fluconazole (Diflucan) 150 Mg Tablet, 150 MG PO ONCE, (Reported) Entered as Reported by: Sandee Quijano on 01/26/23 160 Fluconazole (Fluconazole) 150 Mg Tablet, (Reported) Entered as Reported by: JANET MOON on 03/13/232152 Ondansetron (Ondansetron Odt) 4 Mg Tab.rapdis, 4 MG SL Q8H PRN for NAUSEA/VOMITING Prescribed by: JESSA YU on 10/17/22 0203 Ondansetron (Ondansetron Odt) 8 Mg Tab.rapdis, 8 MG PO Q4H PRN for NAUSEA/VOMITING Prescribed by: CELSO OROZCO on 03/14/23 0002 Pantoprazole Sodium (Protonix) 40 Mg Tablet.dr, 40 MG PO DAILY Prescribed by: CELSO OROZCO on 03/14/23 0002 Phentermine HCl (Phentermine HCl) 37.5 Mg Capsule, 37.5 MG PO DAILY, (Reported) Entered as Reported by: Sandee Quijano on 01/26/23 1602 Prochlorperazine Maleate (Prochlorperazine Maleate) 10 Mg Tablet, 10 MG PO Q8H PRN for NAUSEA/VOMITING Prescribed by: Davonte Granados on 10/20/22 1722 Triamcinolone Acet (Triamcinolone Acetonide 0.1% Cream) 0.1 % Cr, 15 GM TP BID, (Reported) Entered as Reported by: Sandee Quijano on 01/26/23 1602 Past Vzaiqov-Fsffjh-Uvzlkn Hx Patient Social History Tobacco Use?: No Smoking Status: Never a Smoker Smokeless Tobacco Frequency: Never a User Use of E-Cig and/or Vaping dev: No Use of E-Cig and/or Vaping Faustino: Never a User Substance use?: No Alcohol Use?: No Pt feels they are or have been: No Immunizations Up To Date Tetanus Booster (TDap): Less than 5yrs First/Initial COVID19 Vaccinat: 01/07 Second COVID19 Vaccination Po: 02/06 Third COVID19 Vaccination Date: x2 Seasonal Allergies Seasonal Allergies: Yes Past Medical History Surgery/Hospitalization HX: seasonal allergies, gerd, asthma, dental sx, d&c Surgeries: Yes (DENTAL; D&C 01/27/23 FOR MISCARRIAGE) Respiratory: Yes Asthma, Pneumonia Cardiac: No Neurological: Yes Headaches /Migraines Sexually Transmitted Disease: No Genitourinary: Yes UTI-Chronic Gastrointestinal: Yes Irritable Bowel Musculoskeletal: No Endocrine: No HEENT: No Cancer: No Psychosocial: Yes Anxiety, PTSD, Depression 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 oz. kg; 31.00 BMI Method: Progress/Results/Core Measures Suspected Sepsis SIRS Temperature: Pulse: 100 Respiratory Rate: 20 Laboratory Tests 04/17/23 14:30: White Blood Count 7.4 Blood Pressure 136 /84 Mean: 101 Laboratory Tests 04/17/23 14:30: Creatinine 0.64, Platelet Count 292 Results/Orders Lab Results Laboratory Tests Test 04/17/23 14:30 04/17/23 15:53 Range/Units White Blood Count 7.4 4.3-11.0 10^3/uL Red Blood Count 4.67 3.80-5.11 10^6/uL Hemoglobin 10.6 L 11.5-16.0 g/dL Hematocrit 35 35-52 % Mean Corpuscular Volume 75 L 80-99 fL Mean Corpuscular Hemoglobin 23 L 25-34 pg Mean Corpuscular Hemoglobin Concent 30 L 32-36 g/dL Red Cell Distribution Width 18.8 H 10.0-14.5 % Platelet Count 292 130-400 10^3/uL Mean Platelet Volume 9.9 9.0-12.2 fL Immature Granulocyte % (Auto) 0 % Neutrophils (%) (Auto) 68 42-75 % Lymphocytes (%) (Auto) 23 12-44 % Monocytes (%) (Auto) 6 0-12 % Eosinophils (%) (Auto) 2 0-10 % Basophils (%) (Auto) 0 0-10 % Neutrophils # (Auto) 5.1 1.8-7.8 10^3/uL Lymphocytes # (Auto) 1.7 1.0-4.0 10^3/uL Monocytes # (Auto) 0.4 0.0-1.0 10^3/uL Eosinophils # (Auto) 0.2 0.0-0.3 10^3/uL Basophils # (Auto) 0.0 0.0-0.1 10^3/uL Immature Granulocyte # (Auto) 0.0 0.0-0.1 10^3/uL Sodium Level 135 135-145 MMOL/L Potassium Level 3.6 3.6-5.0 MMOL/L Chloride Level 107 98-107 MMOL/L Carbon Dioxide Level 18 L 21-32 MMOL/L Anion Gap 10 5-14 MMOL/L Blood Urea Nitrogen 7 7-18 MG/DL Creatinine 0.64 0.60-1.30 MG/DL Estimat Glomerular Filtration Rate 130 BUN/Creatinine Ratio 11 Glucose Level 112 H 70-105 MG/DL Calcium Level 9.3 8.5-10.1 MG/DL Magnesium Level 2.0 1.6-2.4 MG/DL Serum Test, Qualitative POSITIVE NEGATIVE Urine Color YELLOW Urine Clarity CLEAR Urine pH 7.0 5-9 Urine Specific [place] <=1.005 1.016-1.022 Urine Protein NEGATIVE NEGATIVE Urine Glucose (UA) NEGATIVE NEGATIVE Urine Ketones NEGATIVE NEGATIVE Urine Nitrite NEGATIVE NEGATIVE Urine Bilirubin NEGATIVE NEGATIVE Urine Urobilinogen 0.2 < = 1.0 MG/DL Urine Leukocyte Esterase NEGATIVE NEGATIVE Urine RBC (Auto) NEGATIVE NEGATIVE Urine RBC NONE /HPF Urine WBC RARE /HPF Urine Squamous Epithelial Cells 5-10 /HPF Urine Crystals NONE /LPF Urine Bacteria TRACE /HPF Urine Casts NONE /LPF Urine Mucus NEGATIVE /LPF Urine Culture Indicated NO My Orders Orders - HUY PRIETO MD Ed Iv/Invasive Line Start (04/17/23 14:42) Lactated Ringers (Lr 1000 Ml Iv Solution (04/17/23 14:45) Promethazine Injection (Phenergan Injec (04/17/23 14:45) Basic Metabolic Panel (04/17/23 14:43) Cbc With Automated Diff (04/17/23 14:43) Magnesium (04/17/23 14:43) Ua Culture If Indicated (04/17/23 14:43) Famotidine Injection (Pepcid Injection) (04/17/23 16:00) Scopolamine Patch (Transderm-Scop Patch) (04/17/23 16:30) Hcg,Qualitative Serum (04/17/23 16:31) Medications Given in ED Current Medications Medications Dose Ordered Sig/Nawaf Route Start Time Stop Time Status Last Admin Dose Admin Famotidine 20 mg ONCE ONCE IVP 04/17/23 16:00 04/17/23 16:01 DC 04/17/23 15:59 20 MG Lactated Ringer's 1,000 ml @ 0 mls/hr Q0M ONCE IV 04/17/23 14:45 04/17/23 14:46 DC 04/17/23 14:53 999 MLS/HR Promethazine HCl 25 mg ONCE ONCE IVP 04/17/23 14:45 04/17/23 14:46 DC 04/17/23 14:52 25 MG Scopolamine 1.5 mg ONCE ONCE TD 04/17/23 16:30 04/17/23 16:31 DC 04/17/23 16:32 1.5 MG Vital Signs/I&O 04/17/23 14:23 Temp 36.7 Pulse 100 Resp 20 B/P (MAP) 136/84 (101) O2 Delivery Room Air Capillary Refill : Less Than 3 Seconds Blood Pressure Mean: 101 Progress Note : Time: 16:28 Progress Note Patient was interviewed and examined at 1421. She had already recently taken Zofran 8 mg without improvement in her nausea and vomiting. She was treated with LR 1 L, Phenergan 25 mg, and Pepcid 20 mg IV. Nausea and chest discomfort have improved but she does not believe that nausea has improved enough to be able to tolerate oral liquids. A scopolamine patch has been ordered to further treat her nausea. Vital signs have been unremarkable. Labs were reviewed including CBC, BMP, and magnesium. Labs were grossly unremarkable except for mild anemia with hemoglobin of 10.6. Departure Impression Primary Impression: Nausea/vomiting in Additional Impressions: Atypical chest pain Lightheadedness Disposition: 01 HOME, SELF-CARE Condition: Improved Departure-Patient Inst. Decision time for Depature: 17:56 Referrals: NO,LOCAL PHYSICIAN (PCP/Family) Primary Care Physician Patient Instructions: Acid reflux (gastroesophageal reflux disease) during , Nausea and Vomiting of Add. Discharge Instructions: Your chest discomfort/tightness may be related to acid reflux and irritation of the esophagus from vomiting. Take Pepcid (famotidine) twice daily as prescribed until otherwise directed. Discuss further with Dr. AYALA in your follow-up appointment. For nausea you may continue taking Zofran as previously prescribed. You may use Phenergan (promethazine) as a backup medication. If you are able to obtain take Diclegis, this may help prevent episodes of nausea and vomiting throughout the next day. Drink plenty of clear liquids to stay well-hydrated. Eat small quantities of healthy foods throughout the day. Eating small quantities throughout the day helps prevent nausea. You may leave the scopolamine patch on for up to 3 days. This patch may cause some mild blurry vision and dry mouth. If these symptoms are not tolerable, simply remove the patch. If you touch the patch with your fingers, please wash your hands thoroughly with soap and water. If you touch the patch and then touch near your eye, you may cause unequal pupil size and blurry vision temporarily. Follow-up with Dr. AYALA as soon as possible. Return to care if you have worsening symptoms despite following these instructions. All discharge instructions reviewed with patient and/or family. Voiced understanding. Scripts Doxylamine/Pyridoxine HCl (Prieto [place] 10-10 mg Tablet) 10 Mg-10 Mg Tablet.dr 2 TAB PO HS, #60 TAB Prov: HUY PRIETO MD 04/17/23 Promethazine HCl (Promethazine HCl) 12.5 Mg Tablet 12.5 MG PO Q6H PRN for NAUSEA/VOMITING-2ND LINE, #10 TAB Prov: HUY PRIETO MD 04/17/23 Famotidine (Pepcid) 20 Mg Tablet 20 MG PO BID, #60 TAB Prov: HUY PRIETO MD 04/17/23 HUY PRIETO MD Apr 17, 2023 16:31
[2023-04-17] MEDS ORDERED: FAMO-119 PO (18:07)
[2023-04-17] MEDS ORDERED: PROM12.511 PO (18:07)
[2023-04-17] MEDS ORDERED: DOXY1TAB3 PO (18:07)
[2023-04-17 18:10] VITALS: BP 114/56
== END 2023-04-17 18:10 | disposition home or self-care (01) ==
LOC: EDUNIT# 14:13 → ER 14:16
DX: O21.9 Vomiting of pregnancy, unspecified (principal); O26.891 Other specified pregnancy related conditions, first trimester; R07.89 Other chest pain; R42 Dizziness and giddiness; Z3A.01 Less than 8 weeks gestation of pregnancy
CPT/HCPCS: 36415; 80048; 81000; 83735; 84703; 85025

== ENCOUNTER 2023-05-09 05:31 | Outpatient (CLI) | payer BC ==
[~2023-05-09] VITALS: Ht 167.7 cm; Wt 88.2 kg
[~2023-05-09 05:31] MED LIST changes: +DOXY1TAB3 PO; +FAMO-119 PO; +PROM12.511 PO
[2023-05-09] MEDS ORDERED: DOXY25TA50 PO (09:29)
[2023-05-10] MEDS ORDERED: ACHD5005 PO (07:27)
[2023-05-10] MEDS ORDERED: IBUP-1773 PO (07:27)
== END 2023-05-09 09:48 | disposition home or self-care (01) ==
LOC: PREOP 05:31
PROVIDERS: ATTEND Obstetrics & Gynecology
DX: Z01.818 Encounter for other preprocedural examination (principal)

== ENCOUNTER 2023-05-10 06:49 | Day surgery (SDC) | payer BC ==
[~2023-05-10] VITALS: Ht 167.7 cm; Wt 88.2 kg
[2023-05-10] VITALS (11 sets, daily range): BP systolic 97–124; BP diastolic 59–88
[~2023-05-10 06:49] MED LIST changes: +DOXY25TA50 PO
[2023-05-10] MEDS ORDERED: LACTATED RINGERS 1,000 ML 1,000 ML IV PRN (07:00)
[2023-05-10] MEDS ORDERED: MIDAZOLAM INJ 2 MG/2 ML VIAL ONE (07:09)
[2023-05-10] MEDS ORDERED: SEVOFLURANE (ULTANE) 15 ML INHAL SOLN ONE (07:09)
[2023-05-10] MEDS ORDERED: ONDANSETRON INJECTION 4 MG/2 ML (SDV) ONE (07:09)
[2023-05-10] MEDS ORDERED: LIDOCAINE PF 2% 5 ML VIAL ONE (07:09)
[2023-05-10] MEDS ORDERED: fentaNYL INJECTION 100 MCG/2 ML VIAL ONE (07:09)
[2023-05-10] MEDS ORDERED: dexAMETHasone INJ 10 MG/ML 1 ML VIAL ONE (07:09)
[2023-05-10] MEDS ORDERED: proPOfol INJECTION 200 MG/20 ML VIAL IV ONE (07:09)
--- NOTE | 2023-05-10 07:25 | Progress Note-Pre Operative ---
Pre-Operative Progress Note Date of Available H&P: May 10, 2023 Date H&P Reviewed: May 10, 2023 Time H&P Reviewed: 07:05 History & Physical: H&P Reviewed, Patient Examed, No changes noted Pre-Operative Diagnosis: Missed YOSELIN Sanchez DO May 10, 2023 07:25
--- NOTE | 2023-05-10 07:26 | Discharge Inst-Women's Service ---
Discharge Inst-Women's Serv Depart Medication/Instructions New, Converted or Re-Newed RX: Transmitted to Pharmacy Problems Reviewed?: Yes Consults/Follow Up Additional Follow Up: Yes Orders/Referrals Dr. Ayala in 7-10 days Activity Activity: Activity as Tolerated Driving Instructions: No Driving for 1 Week NO SMOKING: NO SMOKING Nothing Inside Vagina: No Douching, No [place], No Tampons Diet Discharge Diet: No Restrictions Symptoms to Report to : Bleeding Excessive, Pain Increased, Fever Over 101 Degrees F, Vaginal Bleeding Increase, Questions/Concerns For Any Problems or Questions: Contact Your Physician YOSELIN AYALA DO May 10, 2023 07:26
[2023-05-10] MEDS ORDERED: IBUP-1773 PO (07:27)
[2023-05-10] MEDS ORDERED: ACHD5005 PO (07:27)
[2023-05-10] MEDS ORDERED: KETOROLAC INJ 30 MG/ML VIAL IVP ONE (07:30)
[2023-05-10] MEDS ORDERED: HYDROcodone/ACETAMINOPHEN 5 MG/325 MG TABLET PO PRN (07:30)
[2023-05-10] MEDS ORDERED: ONDANSETRON INJECTION 4 MG/2 ML (SDV) IVP ONE (07:30)
[2023-05-10] MEDS ORDERED: ONDANSETRON INJECTION 4 MG/2 ML (SDV) IVP PRN ×2 (07:30→08:45)
[2023-05-10] MEDS ORDERED: D5 LR 1,000 ML IV SOLN 1,000 ML IV SCH (07:30)
[2023-05-10 07:35] LABS: BASOPHILS % (AUTO) 1 % (0-10); EOSINOPHILS # (AUTO) 0.3 10^3/uL (0.0-0.3); EOSINOPHILS % (AUTO) 5 % (0-10); HEMATOCRIT 33 % (35-52); LYMPHOCYTES # (AUTO) 2.2 10^3/uL (1.0-4.0); LYMPHOCYTES % (AUTO) 34 % (12-44); MEAN CORPUSCULAR HEMOGLOBIN 23 pg (25-34); MEAN CORPUSCULAR HGB CONC 30 g/dL (32-36); MEAN CORPUSCULAR VOLUME 77 fL (80-99); MEAN PLATELET VOLUME 9.9 fL (9.0-12.2); MONOCYTES # (AUTO) 0.6 10^3/uL (0.0-1.0); MONOCYTES % (AUTO) 8 % (0-12); NEUTROPHILS # (AUTO) 3.5 10^3/uL (1.8-7.8); NEUTROPHILS % (AUTO) 53 % (42-75); PLATELET COUNT 264 10^3/uL (130-400); WHITE BLOOD COUNT 6.6 10^3/uL (4.3-11.0)
[2023-05-10] MEDS ORDERED: KETOROLAC INJ 30 MG/ML VIAL ONE (07:57)
--- NOTE | 2023-05-10 08:37 | Anesthesia-General Post-Op ---
General Patient Condition Mental Status/LOC: Same as Preop Cardiovascular: Satisfactory Nausea/Vomiting: Absent Respiratory: Satisfactory Pain: Controlled Complications: Absent Post Op Complications Complications None Follow Up Care/Instructions Patient Instructions None needed. Anesthesia/Patient Condition Patient Condition Patient is doing well, no complaints, stable vital signs, no apparent adverse anesthesia problems. No complications reported per nursing. KEN ALFARO CRNA May 10, 2023 08:37
[2023-05-10] MEDS ORDERED: MEPERIDINE INJ 50 MG/ML VIAL IVP ONE (08:45)
[2023-05-10] MEDS ORDERED: fentaNYL INJECTION 100 MCG/2 ML VIAL IVP ONE (08:45)
[2023-05-10] MEDS ORDERED: morphine INJ 10 MG/ML 1ML (SYR OR VIAL) IVP ONE (08:45)
[2023-05-10] MEDS ORDERED: HYDROmorphone INJECTION 2 MG/ML VIAL IV ONE (08:45)
--- NOTE | 2023-05-10 10:04 | OPERATIVE REPORT ---
DATE OF SERVICE: 05/10/2023 PREOPERATIVE DIAGNOSES: 1. A 22-year-old G3, P0 at approximately 12 weeks' gestation. 2. Missed . POSTOPERATIVE DIAGNOSES: 1. A 22-year-old G3, P0 at approximately 12 weeks' gestation. 2. Missed . PROCEDURE: Suction D and C. SURGEON: Yoselin Ayala DO ANESTHESIA: LMA general. ESTIMATED BLOOD LOSS: 500 mL. URINE OUTPUT: 100 mL clear at the end of the procedure. FLUIDS: 500 mL lactated Ringer's solution. FINDINGS: Grossly normal-appearing external female genitalia with a moderate amount of products of conception. SPECIMEN SENT: Products of conception. INDICATIONS FOR PROCEDURE: This 22-year-old female, who is a patient had sought care in my office for care and this is being her third straight diagnosed miscarriage. She was found to have pole with no cardiac activity and a falling hCG level. Due to this, we discussed proceeding with suction D and C. The patient had undergone this procedure performed and is familiar with it. All of her questions were answered. She had no new questions, consent was obtained and the patient was taken to the operating room. OPERATIVE DESCRIPTION IN DETAIL Once in the operating room, anesthesia was found to be adequate, was placed in dorsal lithotomy position, prepped and draped in normal sterile fashion. A timeout was performed. A weighted speculum inserted to the patient's vagina. Right angle retractor was utilized. Cervix was grasped at 12 o'clock position using a long Allis clamp. I then gently sound uterine cavity depth was found to be 10 cm. I then gently dilated the cervix using Hanks dilators to maximum dilatation of 1 cm. I then selected a #10 Greenwood suction curette, advanced into the uterus attached Greenwood suction to a maximum suction pressure of 70 mmHg, at which point I methodically rotated the Greenwood suction curette clearing the endometrial cavity of all endometrial products of conception. This was done on several different passes until a gentle uterine cry is appreciated. I then performed a gentle sharp curettage using a medium size endometrial curette. Once again, there is little to no bleeding noted after this. I made one final pass with the Greenwood suction curette after which there was little to no bleeding noted. I removed all instruments from the patient's vagina. The patient tolerated the procedure well and was taken to recovery area in stable condition. Lap and sponge count was correct at the end of the procedure. Instrument counts correct as well. Job ID: [id number] DocumentID: [id number] Dictated Date: 05/10/2023 08:35:09 Golf Teacher Date: 05/10/2023 10:02:00 Dictated By: YOSELIN AYALA DO
== END 2023-05-10 10:40 | disposition home or self-care (01) ==
LOC: SDC 06:49
PROVIDERS: ATTEND Obstetrics & Gynecology
DX: O02.1 Missed abortion (principal); N96 Recurrent pregnancy loss
CPT/HCPCS: 36415; 85025; 86850; 86900; 86901; 87081

== ENCOUNTER 2023-08-13 03:33 | Emergency (ER) | payer BC ==
[~2023-08-13] VITALS: Ht 168 cm; Wt 88.5 kg
[~2023-08-13 03:33] MED LIST changes: +ACHD5005 PO; +IBUP-1773 PO; -PROC10TA10 PO; +PROC10TA15 PO
[2023-08-13 03:42] VITALS: BP 117/76
--- NOTE | 2023-08-13 03:51 | ED General ---
General Chief Complaint: Cough/Cold/Flu Symptoms Stated Complaint: SINUS INFECTION,COSTA Source of Information: Patient Exam Limitations: No Limitations History of Present Illness Date Seen by Provider: Aug 13, 2023 Time Seen by Provider: 03:37 Initial Comments 23-year-old female presents emergency department today for sinus pressure, pain, nasal congestion and headache. Symptoms started on Tuesday. She has tried Sudafed crzo-ayc-hmzfatk without much relief as well as some cold and flu medications. She tells me she had fevers at the outset of her symptoms but has not had since that time. No known sick contacts. All other systems reviewed and negative except documented per HPI. Voice recognition software was used to help create this chart Allergies and Home Medications Allergies Coded Allergies: cetirizine (Verified Allergy, Unknown, 05/09/23) montelukast (Verified Allergy, Unknown, 05/09/23) Patient Home Medication List Home Medication List Reviewed: Yes Albuterol Sulfate (Ventolin Hfa) 1 Puff Puff, 2 PUFF INH Q4H PRN for SHORTNESS OF BREATH, (Reported) Entered as Reported by: Sandee Quijano on 01/26/23 1602 Budesonide/Formoterol Fumarate (Symbicort 160-4.5 Mcg Inhaler) 160 Mcg-4.5 Mcg/Actuation Hfa.aer.ad, (Reported) Entered as Reported by: JANET MOON on 10/17/2247 Doxylamine Succinate (Sleep Aid) 25 Mg Tablet, 25 MG PO HS, (Reported) Entered as Reported by: Sandee Quijano on 05/09/23 0929 Epinephrine (Epinephrine) 0.3 Mg/0.3 Ml Auto.injct, (Reported) Entered as Reported by: JANET MOON on 10/17/2247 Famotidine (Acid Diesel Dinkey Engineer (FAMOTIDINE)) 10 Mg Tablet, 10 MG PO BID, (Reported) Entered as Reported by: JANET MOON on 10/17/2247 Discontinued Medications Hydrocodone/Acetaminophen (Hydrocodone-Acetamin 5-325 mg) 5 Mg-325 Mg Tablet, 1 EA PO Q4H PRN for PAIN-MODERATE (5-7) Discontinued Reason: No Longer Taking Prescribed by: YOSELIN AYALA on 05/10/23726 Last Action: Discontinued Ibuprofen (Ibuprofen) 600 Mg Tablet, 600 MG PO Q6H Discontinued Reason: No Longer Taking Prescribed by: YOSELIN AYALA on 05/10/23 6577 Last Action: Discontinued Promethazine HCl (Promethazine HCl) 12.5 Mg Tablet, 12.5 MG PO Q6H PRN for NAUSEA/VOMITING-2ND LINE Discontinued Reason: No Longer Taking Prescribed by: HUY CARLSON on 04/17/23 7907 Last Action: Discontinued Triamcinolone Acet (Triamcinolone Acetonide 0.1% Cream) 0.1 % Cr, 15 GM TP BID, (Reported) Discontinued Reason: No Longer Taking Entered as Reported by: Sandee Quijano on 01/26/23 1602 Last Action: Discontinued Review of Systems Review of Systems Constitutional: see HPI Past Behxndr-Crvcgz-Ycwqcr Hx Patient Social History Tobacco Use?: No Use of E-Cig and/or Vaping dev: No Substance use?: No Alcohol Use?: No Immunizations Up To Date Tetanus Booster (TDap): Less than 5yrs First/Initial COVID19 Vaccinat: 01/07 Second COVID19 Vaccination Po: 02/06 Third COVID19 Vaccination Date: NONE Seasonal Allergies Seasonal Allergies: Yes Past Medical History Surgery/Hospitalization HX: seasonal allergies, gerd, asthma, dental sx, d&c Surgeries: Yes (DENTAL, D&C) Respiratory: Yes (COVID) Asthma, Pneumonia Currently Using CPAP: No Currently Using BIPAP: No Cardiac: No Neurological: Yes Concussion, Headaches /Migraines Sexually Transmitted Disease: No Genitourinary: No UTI-Chronic Gastrointestinal: No Irritable Bowel Musculoskeletal: No Scoliosis Endocrine: No HEENT: No Loss of Vision: Denies Hearing Impairment: Denies Cancer: No Psychosocial: Yes Anxiety, Depression Integumentary: Yes (CHRONIC HIVES) Blood Disorders: No Adverse Reaction/Blood Tranf: No Physical Exam Vital Signs Capillary Refill : Height, Weight, BMI Height: '" Weight: lbs. oz. kg; 31.36 BMI Method: General Appearance: No Apparent Distress, WD/WN HEENT: Normal ENT Inspection, Pharynx Normal Neck: Normal Inspection, Non Tender, Supple Respiratory: Chest Non Tender, Lungs Clear, Normal Breath Sounds, No Accessory Muscle Use, No Respiratory Distress Cardiovascular: Regular Rate, Rhythm, No Murmur, Normal Peripheral Pulses Gastrointestinal: Normal Bowel Sounds, No Organomegaly, Non Tender, Soft Extremity: Normal Capillary Refill, Normal Inspection, Non Tender Neurologic/Psychiatric: Alert, Normal Mood/Affect Skin: Normal Color, Warm/Dry Progress/Results/Core Measures Suspected Sepsis SIRS Temperature: Pulse: Respiratory Rate: Blood Pressure / Mean: Results/Orders Vital Signs/I&O Capillary Refill : Departure Impression Primary Impression: Sinusitis Qualified Codes: J01.00 - Acute maxillary sinusitis, unspecified Disposition: HOME, SELF-CARE Condition: Stable Departure-Patient Inst. Referrals: RAJENDRA HINES (PCP/Family) Primary Care Physician Patient Instructions: Sinusitis, Adult ED Add. Discharge Instructions: Use an allergy medicine like Zyrtec or Claritin with a decongestant. Use fluticasone, Flonase, nasal spray. 2 sprays in each nostril once in the morning and once in the evening. You may try saline rinses to your sinuses which may help as well. Increase your fluids at home and rest. Alternate Tylenol and ibuprofen for headaches or pain. Follow-up with your primary doctor if your symptoms last 10 to 14 days as you may need antibiotics at that point however there is no indication for antibiotics at this time. Return to the emergency department for any severe concerns. All discharge instructions reviewed with patient and/or family. Voiced understanding. CLAUDIA PATTON DO Aug 13, 2023 03:51
== END 2023-08-13 03:53 | disposition home or self-care (01) ==
LOC: EDUNIT# 03:33 → ER 03:36
DX: J32.9 Chronic sinusitis, unspecified (principal); Z86.16 Personal history of COVID-19
CPT/HCPCS: 99283